=== PATIENT | female | born 1985 | race Asian ===

== ENCOUNTER → 2024-01-05 | Outpatient (CLI) | payer OTHER ==
[2024-01-06 09:07] LABS: RUBELLA AB IGG-REFLAB 7.64 index (Immune >0.99); RUBEOLA (MEASLES) IGG 75.9 AU/mL (Immune >16.4); VARICELLA ZOSTER IGG AB TITER <135 index (Immune >165)
== END | disposition home or self-care (01) ==
LOC: LABMN 11:22
PROVIDERS: ATTEND Internal Medicine
DX: Z02.1 Encounter for pre-employment examination (principal)
CPT/HCPCS: 86706; 86735; 86762; 86765; 86787